=== PATIENT | male | born 1990 | race African-American/Black ===

== ENCOUNTER 2019-12-12 09:34 | Emergency (ER) | payer OTHER, SELFPAY ==
[2019-12-12 09:38] VITALS: BP 131/77; PULSE 91; RESP 18; TEMP 36.7; O2SAT 99
--- NOTE | 2019-12-12 09:48 | ED.GENADULT ---
HPI - General Adult General Chief complaint: Urogenital-Male Stated complaint: std check Time Seen by Provider: 12/12/19 09:36 Source: RN notes reviewed History of Present Illness HPI narrative: Patient presents emergency department from home for STD check. Patient states he had unprotected sex 2 days ago is concerned about potential STD. He denies having any symptoms. He denies having any urethral discharge penile pain penile lesions testicular pain abdominal pain nausea vomiting fevers or any other symptoms. Related Data Home Medications Medication Instructions Recorded Confirmed No Home Medications 06/25/19 06/25/19 Allergies Allergy/AdvReac Type Severity Reaction Status Date / Time ondansetron Allergy Intermediate HIVES Verified 12/12/19 09:48 Sulfa (Sulfonamide Allergy Unknown Unknown Verified 12/12/19 09:48 Antibiotics) Review of Systems Review of Systems: Narrative: Gen.: Denies fevers or chills ENT: Denies congestion sore throat Respiratory: Denies shortness of breath CV: Denies chest pain GI: Denies abdominal pain nausea, emesis see HPI Musculoskeletal: Denies back pain or muscle pain Neuro: Denies headache Skin: Denies rash Except as documented, all other systems reviewed and negative [facility] Past Medical History Medical History (Updated 12/12/19 @ 09:50 by Manolo Barrios DO) Patient denies significant medical history Social History Social History Smoking status: Never smoker Gender identity (if verbalized by the patient): Male Exam Narrative: Exam Narrative: APPEARANCE: No acute distress, nontoxic, resting in bed EYES: EOMI HEENT: Normocephalic, atraumatic, OMM RESPIRATORY: No respiratory distress Clear to auscultation bilaterally with no rhonchi wheezing or rales. CARDIOVASCULAR: Regular rate and rhythm without murmurs rubs or gallops. ABDOMINAL: Soft, nontender, nondistended, no rebound or guarding MUSCULOSKELETAl: Moves all extremities. No clubbing, cyanosis or edema. NEURO: Awake and alert. Following commands, speech normal, no focal deficits SKIN:: Warm, dry. No rashes lesions or abrasions PSYCHIATRIC: Normal affect/mood, Course Course Emergency Course: Discussed with patient testing versus treating. At this time the patient wishes only have treating. We discussed HIV testing I discussed patient is followed with his PCP or health department for HIV testing Discussed with patient results of workup and diagnosis. Discussed need for follow-up with primary care, proper use of medication, and reasons to return to the emergency department. Patient understands and agrees to current treatment plan Vital Signs Vital signs: Vital Signs Temperature 98.1 F 12/12/19 09:38 Pulse Rate 91 12/12/19 09:38 Respiratory Rate 18 12/12/19 09:38 Blood Pressure 131/77 12/12/19 09:38 Pulse Oximetry 99 12/12/19 09:38 Temperature 98.1 F 12/12/19 09:38 Pulse Rate 91 12/12/19 09:38 Respiratory Rate 18 12/12/19 09:38 Blood Pressure 131/77 12/12/19 09:38 Pulse Oximetry 99 12/12/19 09:38 Medical Decision Making Vital Signs Vital Signs: Vital Signs Temperature 98.1 F 12/12/19 09:38 Pulse Rate 91 12/12/19 09:38 Respiratory Rate 18 12/12/19 09:38 Blood Pressure 131/77 12/12/19 09:38 Pulse Oximetry 99 12/12/19 09:38 Temperature 98.1 F 12/12/19 09:38 Pulse Rate 91 12/12/19 09:38 Respiratory Rate 18 12/12/19 09:38 Blood Pressure 131/77 12/12/19 09:38 Pulse Oximetry 99 12/12/19 09:38 Discharge Plan Discharge Clinical Impression: Sexually transmitted disease exposure Patient Disposition: Home, Self-Care Condition: Stable Instructions: Antibiotic Form, Sexually Transmitted Diseases (ED) Additional Instructions: All sexual partners need be evaluated for possible sexually transmitted disease Prescriptions: No Action No Home Medications
[2019-12-12] MEDS: cefTRIAXone 250 MG VIAL IM (10:08)
[2019-12-12] MEDS: AZITHROMYCIN 250 MG TABLET 1000 MG PO (10:08)
== END 2019-12-12 10:14 | disposition home or self-care (01) ==
PROVIDERS: Emergency Provider Emergency Medicine
DX: Z20.2 Contact with and (suspected) exposure to infections with a predominantly sexual mode of transmission (principal)
CPT/HCPCS: 96372; 99283; A9270; J0696

== ENCOUNTER 2020-07-25 08:05 | Observation (INO) | payer OTHER, SELFPAY ==
[2020-07-25 08:09] VITALS: BP 138/96; PULSE 128; RESP 20; TEMP 36.3; O2SAT 99
--- NOTE | 2020-07-25 10:04 | ED.GENADULT ---
HPI - General Adult General Chief complaint: Wound/Laceration <Stephenie Alonzo PA-C - Last Filed: 08/18/20 12:31> Stated complaint: boil in L buttocks <Stephenie Alonzo PA-C - Last Filed: 08/18/20 12:31> Time Seen by Provider: 07/25/20 10:03 <Stephenie Alonzo PA-C - Last Filed: 08/18/20 12:31> Source: patient <Stephenie Alonzo PA-C - Last Filed: 08/18/20 12:31> Mode of arrival: ambulatory <GABE John Last Filed: 08/18/20 12:31> Limitations: no limitations <GABE John Last Filed: 08/18/20 12:31> History of Present Illness HPI narrative: 30-year-old male here for abscess on his left buttocks. States when he was getting into the bed here it opened up spontaneously and is now draining foul-smelling purulent material. The abscess started on Sunday, he denies any fever. Denies any spread to his genitals. He has had an abscess on his buttocks before. <Stephenie Alonzo PA-C - Last Filed: 08/18/20 12:31> Onset (ago): day(s) <Stephenie Alonzo PA-C - Last Filed: 08/18/20 12:31> Location: buttocks and left <Stephenie Alonzo PA-C - Last Filed: 08/18/20 12:31> Radiation: non-radiation <GABE John Last Filed: 08/18/20 12:31> Severity: severe <GABE John Last Filed: 08/18/20 12:31> Quality: sharp <GABE John Last Filed: 08/18/20 12:31> Pain Consistency: constant <GABE John Last Filed: 08/18/20 12:31> Associated symptoms: denies other symptoms <Stephenie Alonzo PA-C - Last Filed: 08/18/20 12:31> Treatments prior to arrival: NSAID (tylenol) <Stephenie Alonzo PA-C - Last Filed: 08/18/20 12:31> Related Data Allergies/adverse reactions: Allergies Allergy/AdvReac Type Severity Reaction Status Date / Time ondansetron Allergy Intermediate HIVES Verified 07/26/20 12:08 shrimp Allergy Intermediate Hives Verified 07/26/20 12:08 Sulfa (Sulfonamide Allergy Mild Hives Verified 07/26/20 12:08 Antibiotics) <Stephenie Alonzo PA-C - Last Filed: 08/18/20 12:31> Review of Systems Review of Systems: All systems reviewed & are unremarkable except as noted in HPI and below <Stephenie Alonzo PA-C - Last Filed: 08/18/20 12:31> [facility] Past Medical History Medical History: Medical History (Updated 07/25/20 @ 13:57 by Stephenie Alonzo PA-C) Abscess Patient denies significant medical history <Stephenie Alonzo PA-C - Last Filed: 08/18/20 12:31> Family History Family History: Family History (Updated 07/25/20 @ 15:24 by Ashley Ballard RN) Grandparent Diabetes mellitus Mother No problems noted. Sibling Asthma Sibling Asthma Sibling Asthma <Stephenie Alonzo PA-C - Last Filed: 08/18/20 12:31> Social History Social History: Social History Years smoked: 3 Smoking status: Current some day smoker Tobacco type: cigarettes Alcohol intake: current Substance use type: marijuana Other substance usage details: 2-3 joints per day Gender identity (if verbalized by the patient): Male Sexual Orientation (if Verbalized by the Patient): Straight or Heterosexual Spiritual care concerns: No <Stephenie Alonzo PA-C - Last Filed: 08/18/20 12:31> Exam Const: General: no acute distress and alert <Stephenie Alonzo PA-C - Last Filed: 08/18/20 12:31> Orientation/consciousness: patient oriented x3 <Stephenie Alonzo PA-C - Last Filed: 08/18/20 12:31> HENMT: Head: normal to inspection <Stephenie Alonzo PA-C - Last Filed: 08/18/20 12:31> Eyes: Pupils: Equal, round and reactive pupils present <Stephenie Alonzo PA-C - Last Filed: 08/18/20 12:31> Resp: Effort & Inspection: normal respiratory effort <GABE John Last Filed: 08/18/20 12:31> Auscultation: clear to auscultation bilaterally <Stephenie Alonzo PA-C - Last Filed: 08/18/20 12:31> Cardio: Rate: regular ra
[2020-07-25] MEDS: KETOROLAC (*BKC) 60 MG/2 ML VIAL IM (10:31)
[2020-07-25] MEDS: LIDOCAINE, EPINEPHRINE, TETRACAINE VISCOUS SOLN 3 ML TOPICAL (10:31)
[2020-07-25 10:56] LABS: Basophils Absolute Auto 0.1 K/mm3 (0.0-0.1); Basophils Percent Auto 0.3 % (0.2-1.2); Hematocrit 44.5 % (42.0-52.0); Immature Granulocyte Absolute 0.13 K/mm3 (0.00-0.031); Immature Granulocyte Percent A 0.5 % (0-0.5); Lymphocytes Absolute Auto 1.71 K/mm3 (0.9-3.2); Lymphocytes Percent Auto 6.2 % (18.3-44.2); Mean Corpuscular HGB Conc 31.5 g/dl (32-36); Mean Corpuscular Hemoglobin 24.1 pg (26-34); Mean Corpuscular Volume 76.7 fl (80-100); Mean Platelet Volume 8.2 fl (7.4-10.4); Monocytes Absolute Auto 1.8 K/mm3 (0.1-0.6); Monocytes Percent Auto 6.4 % (2.6-8.5); Neutrophils Absolute Auto 23.8 K/mm3 (1.3-6.7); Neutrophils Percent Auto 86.6 % (45.5-73.1); Platelet Count Result 325 k/mm3 (150-375); White Blood Count 27.5 K/mm3 (4.5-10.0)
[2020-07-25 11:08] LABS: Lactic Acid Reflex 1.4 mmol/L (0.7-2.1)
[2020-07-25 11:11] LABS: Alanine Aminotransferase 18 U/L (4-50); Albumin Level 4.3 g/dL (3.5-5.1); Alkaline Phosphatase 118 U/L (38-126); Anion Gap 5 mmol/L (8-16); Aspartate Amino Transferase 26 U/L (17-59); Bilirubin,Total 1.2 mg/dL (0.2-1.3); Blood Urea Nitrogen 8 mg/dL (9-20); CRP 7.8 mg/dL (<1.0); Calcium 9.3 mg/dL (8.4-10.2); Carbon Dioxide 27 mmol/L (22-30); Chloride 104 mmol/L (98-107); Estimated CRCL calculation 113 ml/min; Estimated Glomerular Filt Rate > 60; Glucose 106 mg/dL (75-110); Potassium 3.6 mmol/L (3.4-5.0); Sodium 136 mmol/L (137-145)
--- NOTE | 2020-07-25 12:08 | PM.IMHP ---
H&P: HPI History of Present Illness Date/Time: 07/25/20 12:08 Chief Complaint: abscess Narrative: Queta Aguirre is a 30 year old male presenting to ED c/o worsening abscess on L buttock, perineum over last few days. Pt reports area has steadily increased in size and is constantly painful. Pt reports it started spontaneously draining while in ED today. Pt reports pain is better since area started draining. Pt denies any f/c. Pt reports previous abscess on buttock but not is same spot. Review of Systems Constitutional: Constitutional: Denies anorexia, Denies chills, Denies difficulty sleeping, Denies fatigue, Denies fever(s), Denies lethargy, Denies malaise, Denies poor appetite, Denies weakness, Denies weight gain and Denies weight loss Eyes: Eyes: Reports no additional eye complaints ENT: Reports system reviewed and no additional complaints, except as documented Cardiovascular: Cardiovascular: Reports no additional cardiovascular complaints Respiratory: Respiratory: Reports no additional respiratory complaints Gastrointestinal: Gastrointestinal: Reports no additional gastrointestinal complaints Genitourinary: Genitourinary: Reports no additional male genitourinary complaints Musculoskeletal: Musculoskeletal: Reports no additional musculoskeletal complaints Integumentary/Breasts: Skin/Breast: Reports system reviewed and no additional complaints, except as docu Neurologic: Reports system reviewed and no additional complaints, except as documented Psychiatric: Psychiatric: Reports no additional psychiatric complaints Endocrine: Endocrine: Reports no additional endocrine complaints Hematologic/Lymphatic: Hematologic/Lymphatic: Reports no additional hematologic/lymphatic complaints Allergic/Immunologic: Allergic/Immunologic: Reports no additional allergic/immunologic complaints PMFSH Past Medical History Medical History Abscess Patient denies significant medical history Social History Social History Smoking status: Never smoker Gender identity (if verbalized by the patient): Male Comments no past surgical history, denies any FH of DM or skin cancers Meds Home Medications and Allergies Home Medications Medication Instructions Recorded Confirmed Type No Home Medications 06/25/19 07/25/20 History Allergies Allergy/AdvReac Type Severity Reaction Status Date / Time ondansetron Allergy Intermediate HIVES Verified 07/25/20 08:12 Sulfa (Sulfonamide Allergy Unknown Unknown Verified 07/25/20 08:12 Antibiotics) Vital Signs Vital Signs - 24 hr 07/25/20 08:09 Temperature 36.3 C L Pulse Rate 128 H Respiratory Rate 20 Blood Pressure 138/96 H Pulse Oximetry 99 Exam Const: General: cooperative, healthy appearing and acute distress mild Nutritional Appearance: average body habitus Orientation/consciousness: patient oriented x3 Limitations: no limitations HENMT: Head: normal to inspection, normocephalic and atraumatic Ears: hearing grossly normal bilaterally General nose exam: Normal external nose present Face and sinus: normal facial exam Mouth: Yes Normal oral and palatal mucosa present and Yes moist mucous membranes abnormal Eyes: General: appearance normal, both eyes and all related structures Pupils: Equal, round and reactive pupils present EOM: EOMs intact bilaterally Neck: Neck: normal visual inspection, full ROM and no lymphadenopathy Chest: Chest palpation & inspection: normal inspection of the chest Resp: Effort & Inspection: normal respiratory effort Auscultation: clear to auscultation bilaterally Cardio: Rate: regular rate Rhythm: regular rhythm GI: Inspection: normal to inspection GI Palp: No abdominal tenderness, Yes Soft to palpation, No Firmness to palpation present (GI) and No Tenderness to palpation present (GI) Skin: Other: L lower buttock, per
[2020-07-25] MEDS: HYDROmorphone HCL INJ (*CRX) 1 MG/ML SYR IV PUSH ×4 (12:14→23:48)
[2020-07-25 12:54] VITALS: BP 140/95; PULSE 75; RESP 18; O2SAT 100
[2020-07-25] MEDS: METOCLOPRAMIDE HCL INJ 10 MG/2 ML VIAL IV PUSH (12:57)
[2020-07-25 14:38] VITALS: BP 135/94; PULSE 78; RESP 18; O2SAT 100
--- NOTE | 2020-07-25 14:55 | ADMGEN ---
This patient, Queta Aguirre, was admitted to Medical Room 254-01. Patient/family oriented to hospital policies and general routines including ID bracelet, bed and alarms, visiting hours, pain management, procedures, bathroom and other care routines, personal items, smoking policy, room service/diet, and visiting hours. Information on how to activate the Rapid Response Team has been discussed. Patient/Family are encouraged to report perceived risks to care and to ask questions if they do not understand what they are told or what they should do.
[2020-07-25] MEDS: SODIUM CHLORIDE 0.9% IV 1,000 ML 125 ML IV CONT ×2 (15:05→22:56)
[2020-07-25 15:10] VITALS: BP 142/85; PULSE 71; RESP 16; TEMP 36; O2SAT 98
[2020-07-25 18:00] VITALS: BP 137/82; PULSE 64; RESP 16; TEMP 36.7; O2SAT 100
[2020-07-25 22:00] VITALS: BP 138/88; PULSE 79; RESP 16; TEMP 36.9; O2SAT 100
[2020-07-25 22:07] VITALS: BMI 30.9
[2020-07-26] VITALS (7 sets, daily range): BP systolic 116–133; BP diastolic 58–81; PULSE 65–102; RESP 16–20; TEMP 36.7–37.2; O2SAT 98–100
[2020-07-26] MEDS: HYDROmorphone HCL INJ (*CRX) 1 MG/ML SYR IV PUSH ×2 (04:55→09:31)
[2020-07-26 05:53] LABS: Estimated CRCL calculation 139 ml/min; Estimated Glomerular Filt Rate > 60
[2020-07-26] MEDS: SODIUM CHLORIDE 0.9% IV 1,000 ML 125 ML IV CONT (09:27)
[2020-07-26 10:03] LABS: Hematocrit 40.3 % (42.0-52.0); Hemoglobin 12.6 g/dL (14.0-18.0); Mean Corpuscular HGB Conc 31.3 g/dl (32-36); Mean Corpuscular Hemoglobin 24.2 pg (26-34); Mean Corpuscular Volume 77.4 fl (80-100); Mean Platelet Volume 9.2 fl (7.4-10.4); Platelet Count Result 318 k/mm3 (150-375); Red Blood Count 5.21 M/mm3 (4.6-6.20); White Blood Count 18.6 K/mm3 (4.5-10.0)
--- NOTE | 2020-07-26 10:08 | PM.PNGS ---
Progress Note: A&P Assessment and Plan (1) Abscess: Code(s): L02.91 - Cutaneous abscess, unspecified Status: Inactive Assessment and Plan: Left perianal abscess still with purulent drainage and fluctuance. Still very tender on exam. WBC pending this morning. Discussed treatment options with the patient. This abscess looks today like it has not adequately drained and may require further I&D in the OR. Patient very tender on exam. Discussed with Dr. Harris. Will make patient NPO for now. We will try to add him onto the surgery schedule today. Continue IV abx, IV fluids, and analgesics. Description of the procedure, risks, benefits, indications, and expected outcomes were discussed with the patient in detail. All questions were answered. He agrees to proceed. Subjective Subjective Date/Time Seen: 07/26/20 10:08 Patient reports: no new complaints and pain is less Interval history: Patient feels his buttock pain has improved but no more drainage on the dressing today. Afebrile. WBC pending. No other complaints. Review of Systems Review of Systems: All systems reviewed & are unremarkable except as noted in HPI and below Exam Skin: Other: Left buttock/perianal abscess with induration and an area of fluctuance near the center. Scant purulent drainage still coming from small opening near the center. TTP. Objective Data Vital Signs Vital Signs: Vital Signs - 24 hr 07/25/20 12:54 07/25/20 14:38 07/25/20 15:10 Temperature 96.8 F L Pulse Rate 75 78 71 Respiratory Rate 18 18 16 Blood Pressure 140/95 H 135/94 H 142/85 H Pulse Oximetry 100 100 98 07/25/20 18:00 07/25/20 22:00 07/26/20 06:00 Temperature 98.1 F 98.5 F 98.1 F Pulse Rate 64 79 72 Respiratory Rate 16 16 18 Blood Pressure 137/82 138/88 116/59 L Pulse Oximetry 100 100 100 Intake/Output Intake/Output: Intake & Output 07/23/20 07/24/20 07/25/20 07/26/20 23:59 23:59 23:59 23:59 Intake Total 2220 2190 Output Total 0 850 Balance 2220 1340 Meds/Results Medications: Active Medications Generic Name Dose Route Start Last Admin Trade Name Freq PRN Reason Stop Dose Admin Hydromorphone HCl 1 mg 07/25/20 12:40 07/26/20 09:31 Hydromorphone Hcl Inj (*Crx) 1 Mg/Ml Syr IV PUSH 1 mg Q4H PRN Administration Pain Rated 7-10 Sodium Chloride 1,000 mls @ 125 mls/hr 07/25/20 12:40 07/26/20 09:27 Normal Saline Iv IV CONT 125 mls/hr .Q8H DOMINGO Administration Vancomycin HCl 1,500 mg in 500 mls @ 333.333 mls/hr 07/26/20 00:00 07/26/20 02:20 Vancomycin 1,500 Mg/D5w 500 Ml IVPB Infused Q12H DOMINGO Infusion Acetaminophen 1,000 mg in 100 mls @ 400 mls/hr 07/26/20 10:03 Ofirmev 1,000 Mg Ivpb IVPB 07/27/20 10:04 Q6H PRN Pain Rated 4-6 Labs Labs: Laboratory Results - last 24 hr 07/25/20 07/25/20 07/25/20 10:50 10:50 10:51 WBC 27.5 H RBC 5.80 Hgb 14.0 Hct 44.5 MCV 76.7 L MCH 24.1 L MCHC 31.5 L RDW 14.0 Plt Count 325 MPV 8.2 Immature Gran % (Auto) 0.5 Neut % (Auto) 86.6 H Lymph % (Auto) 6.2 L [place] % (Auto) 6.4 Eos % (Auto) 0.0 Baso % (Auto) 0.3 Lymph # (Auto) 1.71 [place] # (Auto) 1.8 H Eos # (Auto) 0.0 Baso # (Auto) 0.1 Abs Immat Gran (auto) 0.13 H Absolute Neuts (auto) 23.8 H Absolute Nucleated RBC 0.0 Nucleated RBC % 0.0 Sodium 136 L Potassium 3.6 Chloride 104 Carbon Dioxide 27 Anion Gap 5 L BUN 8 L Creatinine 1.00 Estim Creat Clear Calc 113 Estimated GFR > 60 Glucose 106 Lactic Acid 1.4 Calcium 9.3 Total Bilirubin 1.2 AST 26 ALT 18 Alkaline Phosphatase 118 C-Reactive Protein 7.8 H Total Protein 9.0 H Albumin 4.3 07/26/20 05:06 WBC RBC Hgb Hct MCV MCH MCHC RDW Plt Count MPV Immature Gran % (Auto) Neut % (Auto) Lymph % (Auto) [place] % (Auto) Eos % (Auto) Baso % (Auto) Lymph # (Auto) [place] # (Auto) Eos # (Auto)
[2020-07-26] MEDS: LACTATED RINGERS 1,000 ML 30 ML IV CONT (12:00)
--- NOTE | 2020-07-26 12:02 | WPDANESEPPF ---
Anes - Initial Pre Proc Eval Procedure: Operation Date: 07/26/20 12:30 Proposed Procedures p COMPLEX INCISION AND DRAINAGE LEFT PERINEAL ABSCESS - Katerina Harris MD Date/Time: 07/26/20 12:02 Surgeon: Katerina Harris MD Pre Op Diagnosis: Abscess Patient Data Age: 30 Gender: M Height: 1.78 m Weight: 97.8 kg Last Vital Signs Temp 36.7 C 07/26/20 06:00 Pulse 72 07/26/20 06:00 Resp 18 07/26/20 06:00 BP 116/59 L 07/26/20 06:00 Pulse Ox 100 07/26/20 06:00 Allergies Allergy/AdvReac Type Severity Reaction Status Date / Time ondansetron Allergy Intermediate HIVES Verified 07/25/20 15:15 shrimp Allergy Intermediate Hives Verified 07/25/20 15:15 Sulfa (Sulfonamide Allergy Mild Hives Verified 07/25/20 15:15 Antibiotics) Home Medications Medication Instructions Recorded Confirmed Type No Home Medications 06/25/19 07/25/20 History Laboratory Tests 07/26/20 07/26/20 05:06 05:06 WBC 18.6 K/mm3 H K/mm3 (4.5-10.0) RBC 5.21 M/mm3 M/mm3 (4.6-6.20) Hgb 12.6 g/dL L g/dL (14.0-18.0) Hct 40.3 % L % (42.0-52.0) MCV 77.4 fl L fl (80-100) MCH 24.2 pg L pg (26-34) MCHC 31.3 g/dl L g/dl (32-36) RDW 14.0 % % (11.5-14.5) Plt Count 318 k/mm3 k/mm3 (150-375) MPV 9.2 fl fl (7.4-10.4) Creatinine 0.80 mg/dL mg/dL (0.7-1.3) Estim Creat Clear Calc 139 ml/min ml/min Estimated GFR > 60 (59 - ) Patient hx anesthesia problems: none Family hx anesthesia problems: none PMFSH Past Medical History Medical History (Updated 07/25/20 @ 13:57 by Stephenie Alonzo PA-C) Abscess Patient denies significant medical history Family History Family History (Updated 07/25/20 @ 15:24 by Ashley Ballard RN) Grandparent Diabetes mellitus Mother No problems noted. Sibling Asthma Sibling Asthma Sibling Asthma Social History Social History Years smoked: 3 Smoking status: Current some day smoker Tobacco type: cigarettes Alcohol intake: current Substance use type: marijuana Other substance usage details: 2-3 joints per day Gender identity (if verbalized by the patient): Male Sexual Orientation (if Verbalized by the Patient): Straight or Heterosexual Spiritual care concerns: No Anes - Eval Final PreProcedure Day of Procedure 07/26/20 12:02 Patient weight: obese Heart: regular rate and rhythm Lungs: clear to auscultation and normal air movement Airway: Mallampati scale class II Neurological: alert and oriented Last oral intake: >/= 8 hours ASA classification: III Emergent: no Anesthetic plan: proceed Anesthesia type and monitoring: general LMA and ETT Informed Consent: The patient's anesthetic plan and its attendant risks and benefits were discussed with the patient/family/POA. Questions were solicited and answers provided to the satisfaction of the patient/family/POA.
--- NOTE | 2020-07-26 12:25 | WPDHPUPDATE1 ---
History and Physical Update Update Date/Time: 07/26/20 12:25 History and Physical has been reviewed, including an updated exam of the patient. There are NO changes in the patient's condition. Risks, benefits, and alternatives have been discussed and questions answered. Patient agrees to proceed with procedure.
[2020-07-26] MEDS: BUPIVACAINE/EPINEPHRINE 0.25% 50 ML VIAL 30 ML INFILTRATE (12:55)
--- NOTE | 2020-07-26 13:44 | PM.PROC ---
Procedure Note - Detailed Date of procedure: 07/26/20 Pre-op diagnosis: Abscess Left perineal abscess measuring 12 x 6 cm Post-op diagnosis: same Procedure performed: complex incision and drainage L perineal abscess Description of procedure: The patient was taken to the operating room and placed in the modified lithotomy position. After adequate induction of general anesthesia, the patient was prepped and draped in the normal sterile fashion. A time-out was then done to verify the patient's identity, as well as the procedure being performed. I began by examining the area of the abscess. It was noted to measure 12 x 6 cm and located within the left inner medial buttock extending down into the left perineum. There were some multiple punctate openings that were draining purulent material. I went ahead and localized the area. I then made an incision over the most fluctuant area of this abscess. A moderate amount of purulent drainage was noted. I was then able to bluntly dissect around the entire cavity of the abscess. This was noted to involve the skin and subcutaneous tissue but not the underlying muscle or bone. Once the area was completely open and draining, I packed the area with 1 in iodoform. Sterile dressing was then placed. The patient tolerated the procedure well and was extubated in the operating room postoperatively. He will be transferred recovery room in stable condition. Anesthesia: GETA Surgeon: Katerina Harris MD Estimated blood loss (mL): 5 Drains: No Packing: Yes Pathology: none sent Complications: No immediate complications Condition: stable Disposition: PACU Findings: 12 x 6 cm left perineal abscess
--- NOTE | 2020-07-29 11:09 | P.DS_ITS ---
DS: Admitting Diagnosis Admitting Diagnosis Admitting Diagnosis: perirectal abscess DS: Discharge Diagnosis Discharge Diagnosis (1) Abscess and cellulitis of gluteal region: Code(s): L02.31 - Cutaneous abscess of buttock; L03.317 - Cellulitis of buttock Status: Acute Assessment and Plan: s/p I and D, instructions for local wound care, take abx as prescribed DS: Summary Hospital Course Reason for hospitalization: L perirectal abscess Hospital Course: Pt admitted thru ED c L sided perirectal abscess. Pt noted spontaneous drainage in ED c some relief. Pt admitted and started on IV abx. On HD 1, pt c cont pain and severe induration. Decision to proceed to OR for complex incision and drainage, please see full op report for details. Pt did well postop and was dc'd home c po abx and analgesia. He will f/u 2 wks. Status at Discharge Functional status at discharge: independent ambulation Overall status at discharge: patient is progressing back to baseline Time Spent with Patient Time attestation: Total time spent providing and/or coordinating discharge services: Time spent: Less than 30 minutes Exam Const: General: cooperative, comfortable and no acute distress Resp: Auscultation: clear to auscultation bilaterally Cardio: Rate: regular rate Rhythm: regular rhythm Skin: Other: L perineal abscess - well drained, packed Discharge Plan Discharge Attending physician on discharge: Katerina Harris Consulting providers: Robert Goetz ; Stephenie Alonzo ; Shavon Dooley Discharging Clinician: Katerina Harris Anticipated Discharge Date/Time: 07/26/20 16:00 Patient Disposition: Home, Self-Care Activity: october shower Diet: as tolerated and regular Patient Instructions: Antibiotic Form Stand Alone Forms: General Discharge Information, Work/School Release IP Follow-up/Referrals: Katerina Harris MD [Physician] - 2 Weeks Discharge Medications: New amoxicillin-pot clavulanate [Augmentin] 875-125 mg tablet 1 tablet PO Q12H Qty: 14 RF: 0 hydrocodone-acetaminophen [[place]] 5-325 mg tablet 1 tablet PO Q6H PRN (Reason: pain) Qty: 20 RF: 0 docusate sodium [Colace] 100 mg capsule 100 mg PO BID Qty: 20 RF: 0 Date of admission: 07/25/20 12:40 Primary Care Provider: PHYSICIAN,BIOMEDICAL FIELD SERVICE ENGINEER Admitting Provider: Katerina Harris Attending physician on admission: Katerina Harris Condition: Stable
== END 2020-07-26 16:57 | disposition home or self-care (01) ==
LOC: ANHED 10:04 → ANH2MED 13:09
PROVIDERS: Nurse Practitioner Family; Physician Assistant; Admitting Provider Surgery; Emergency Provider General Practice; Visit Provider Surgery
PROC: (CPT 46040; principal; 2020-07-26 12:30)
DX: L02.215 Cutaneous abscess of perineum (principal); L03.317 Cellulitis of buttock; F17.210 Nicotine dependence, cigarettes, uncomplicated; F12.90 Cannabis use, unspecified, uncomplicated; E66.9 Obesity, unspecified; Z68.30 Body mass index [BMI] 30.0-30.9, adult
CPT/HCPCS: 10061; 36415; 80053; 82565; 83605; 85025; 85027; 86140; 96361; 96365; 96366; 96372; 96375; 96376; 99285; A9270; G0378; G0379; J0330; J1100; J1170; J1885; J2250; J2405; J2704; J2765; J3010; J3370; J7030; J7120

== ENCOUNTER 2021-01-24 20:46 | Emergency (ER) | payer OTHER, SELFPAY ==
[2021-01-24 21:02] VITALS: BP 135/80; PULSE 106; RESP 20; TEMP 37.5; O2SAT 99
--- NOTE | 2021-01-24 23:46 | PC.NURSE ---
Pt states he will come back tomorrow and does not wish to be seen.
== END 2021-01-24 23:50 | disposition left against medical advice (07) ==
LOC: ANHED 23:51
DX: L02.828 Furuncle of other sites (principal)
CPT/HCPCS: 99199

== ENCOUNTER 2021-01-25 15:42 | Emergency (ER) | payer OTHER, SELFPAY ==
--- NOTE | ~2021-01-25 | CT_ITS ---
EXAMINATION: CT abdomen pelvis w con DATE: 01/25/2021 19:47 INDICATION: Abdominal wall abscess. Scrotal abscess. TECHNIQUE: Computed tomography (CT) of the abdomen and pelvis was performed with 100 mL Omnipaque 350 intravenous contrast. Automated exposure control and iterative reconstruction technique were employe d. The dose-length product was 757.12 mGy-cm. COMPARISON: CT abdomen and pelvis 06/11/2016 FINDINGS: The visualized portions of the lung bases demonstrate mild atelectasis. No pleural effusion . The heart size is normal. No pericardial effusion. The liver, gallbladder, spleen, pancreas, adrena l glands, and kidneys are normal. There are no dilated loops of bowel. The appendix is normal. There is skin thickening and subcutaneous fat stranding in left anterior anterior abdominal wall, consisten t with inflammation. No significant drainable abscess. There is mild bilateral inguinal lymphadenopat hy, likely reactive. There is skin thickening superior to the penis, consistent with inflammation. Th ere is skin thickening of the scrotum. There is mild thoracolumbar spondylosis. IMPRESSION: 1. Inflammation of the anterior body wall and scrotum. No significant drainable abscess. 2. Mild bilateral inguinal lymphadenopathy, likely reactive. Reviewed, dictated and finalized at location [facility].
[2021-01-25 16:07] VITALS: BP 122/70; PULSE 91; RESP 18; TEMP 37.7; O2SAT 99
[2021-01-25 17:37] VITALS: BP 133/90; PULSE 83; RESP 16; O2SAT 98
--- NOTE | 2021-01-25 18:32 | ED.SKABFB ---
HPI - Skin/Abscess/Foreign Bdy General Chief complaint: Skin/Abscess/Foreign Body Stated complaint: Boils Time Seen by Provider: 01/25/21 17:40 Source: patient Mode of arrival: ambulatory Limitations: no limitations History of Present Illness HPI narrative: This is a 30 year old male that presents to the ER for multiple abscesses present over the last week. Reports an area over the left side of the lower abdomen. Also an area over the right scrotum. He has had drainage from the areas. Reports he has had multiple abscesses in the right armpit and the skin has not healed well in this area. He has never seen a enchilada maker. Also reports he would like to be tested for STDs. Denies fever. Related Data Allergies Allergy/AdvReac Type Severity Reaction Status Date / Time ondansetron Allergy Intermediate HIVES Verified 07/26/20 12:08 shrimp Allergy Intermediate Hives Verified 07/26/20 12:08 Sulfa (Sulfonamide Allergy Mild Hives Verified 07/26/20 12:08 Antibiotics) Review of Systems Review of Systems: CONSTITUTIONAL: Denies fever GASTROINTESTINAL: Denies abdominal pain, nausea, vomiting GENITOURINARY: Reports dysuria All systems reviewed & are unremarkable except as noted in HPI and below PMFSH Past Medical History Medical History (Updated 01/25/21 @ 20:53 by Niki Weaver PA-C) Abscess Patient denies significant medical history Family History Family History (Updated 07/25/20 @ 15:24 by Ashley Ballard RN) Grandparent Diabetes mellitus Mother No problems noted. Sibling Asthma Sibling Asthma Sibling Asthma Social History Social History Years smoked: 3 Smoking status: Current some day smoker Tobacco type: cigarettes Alcohol intake: current Substance use type: marijuana Other substance usage details: 2-3 joints per day Gender identity (if verbalized by the patient): Male Spiritual care concerns: No Exam Narrative: GENERAL: Well-appearing, well-nourished, and in no acute distress. HEAD: Normocephalic, atraumatic. EYES: EOMI. CHEST: Clear to auscultation. No respiratory distress. No wheezes rales or rhonchi HEART: Regular rate and rhythm. No murmur heard. Normal peripheral pulses. ABDOMEN: Soft, nontender, nondistended, normal active bowel sounds. Left lower abdomen with 5cm x 4cm area of erythema and edema EXTREMITIES: Normal range of motion. No edema. Sinus tracts present in the right axilla, draining purulent fluid on expression SKIN: Warm, dry, no rash. NEURO: No focal deficits. Alert and oriented x3. PSYCH: Normal mood and affect MALE GENITAL: Right hemiscrotum with 2cm area of edema, draining purulent fluid when expressed. The rest of the scrotum appears normal. No testicular tenderness. No abnormal urethral discharge Course Vital Signs Vital signs: Vital Signs Temperature 99.9 F H 01/25/21 16:07 Pulse Rate 91 01/25/21 16:07 Respiratory Rate 18 01/25/21 16:07 Blood Pressure 122/70 01/25/21 16:07 Pulse Oximetry 99 01/25/21 16:07 Temperature 99.9 F H 01/25/21 16:07 Pulse Rate 83 01/25/21 17:37 Respiratory Rate 16 01/25/21 17:37 Blood Pressure 133/90 01/25/21 17:37 Pulse Oximetry 98 01/25/21 17:37 MDM - Skin/Abscess/Foreign Bdy MDM Narrative Medical decision making narrative: Patient presents to the emergency department for multiple areas of edema and erythema. He is afebrile and nontoxic-appearing. CBC does show mild leukocytosis to 13.3. ESR and CRP are mildly elevated. UA without evidence of infection. He has an area of erythema and edema to the left lower abdominal wall. Also a small area of edema to the right scrotum that is spontaneously draining purulent fluid. CT scan of the abdomen and pelvis shows areas of inflammation, no significant drainable abscesses. Patient also has sinus tracts present in the right axilla that spontaneously draining purulent fluid. Patient al
[2021-01-25 18:46] LABS: Basophils Absolute Auto 0.1 K/mm3 (0.0-0.1); Basophils Percent Auto 0.5 % (0.2-1.2); Eosinophils Absolute Auto 0.3 K/mm3 (0-0.3); Eosinophils Percent Auto 1.9 % (0-4.4); Hematocrit 41.6 % (42.0-52.0); Hemoglobin 12.7 g/dL (14.0-18.0); Immature Granulocyte Absolute 0.04 K/mm3 (0.00-0.031); Immature Granulocyte Percent A 0.3 % (0-0.5); Lymphocytes Percent Auto 23.4 % (18.3-44.2); Mean Corpuscular HGB Conc 30.5 g/dl (32-36); Mean Corpuscular Hemoglobin 23.6 pg (26-34); Mean Corpuscular Volume 77.2 fl (80-100); Mean Platelet Volume 8.2 fl (7.4-10.4); Monocytes Absolute Auto 0.9 K/mm3 (0.1-0.6); Monocytes Percent Auto 6.9 % (2.6-8.5); Neutrophils Absolute Auto 8.9 K/mm3 (1.3-6.7); Platelet Count Result 344 k/mm3 (150-375); Red Blood Count 5.39 M/mm3 (4.6-6.20); Red Cell Distribution Width 16.2 % (11.5-14.5); White Blood Count 13.3 K/mm3 (4.5-10.0)
[2021-01-25 18:57] LABS: Alanine Aminotransferase 15 U/L (4-50); Albumin Level 3.9 g/dL (3.5-5.1); Alkaline Phosphatase 106 U/L (38-126); Anion Gap 10 mmol/L (8-16); Aspartate Amino Transferase 22 U/L (17-59); Bilirubin,Total 0.5 mg/dL (0.2-1.3); Blood Urea Nitrogen 5 mg/dL (9-20); CRP 1.6 mg/dL (<1.0); Calcium 9.5 mg/dL (8.4-10.2); Carbon Dioxide 30 mmol/L (22-30); Chloride 99 mmol/L (98-107); Estimated CRCL calculation 126 ml/min; Estimated Glomerular Filt Rate > 60; Glucose 64 mg/dL (65-110); Potassium 3.8 mmol/L (3.4-5.0); Sodium 139 mmol/L (137-145)
[2021-01-25 19:09] LABS: Add Urine Microscopic? YES; Appearance Urine Clear (Clear); Bilirubin Urine Negative (Negative); Blood Urine Negative (Negative); Color Urine Yellow (Yellow); Glucose Urine UA Negative (Negative); Ketones Urine Negative (Negative); Leukocyte Esterase Ur Negative LEU/UL (Negative); Mucus Urine Rare /lpf; Nitrate Urine Negative (Negative); Protein Urine Negative (Negative); RBC Urine 0-2 /hpf (0-2); Specific Grav Ur 1.023 (1.001-1.035); Squamous Epithelial Cell Urine Rare /hpf (Few); WBC Urine 0-3 /hpf
[2021-01-25 19:25] LABS: Erythrocyte Sedimentation Rate 25 mm/hr (0-20)
[2021-01-25] MEDS: LIDOCAINE HCL 1% LOCAL INJ 20 ML VIAL 2.1 ML XX (20:54)
[2021-01-25] MEDS: cefTRIAXone 1 GM VIAL 0.5 GM IM (20:54)
[2021-01-25 21:06] VITALS: BP 132/78; PULSE 72; RESP 18; O2SAT 99
== END 2021-01-25 21:07 | disposition home or self-care (01) ==
PROVIDERS: Physician Assistant; Emergency Provider Emergency Medicine
DX: L03.311 Cellulitis of abdominal wall (principal); N49.2 Inflammatory disorders of scrotum; F17.210 Nicotine dependence, cigarettes, uncomplicated
CPT/HCPCS: 36415; 74177; 80053; 81001; 85025; 85652; 86140; 87070; 87205; 87491; 87591; 87661; 96372; 99284; J0696; Q9967

== ENCOUNTER 2022-03-16 16:38 | Emergency (ER) | payer OTHER, SELFPAY ==
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
[2022-03-16 17:17] VITALS: BP 139/93; PULSE 64; RESP 14; TEMP 37.4; O2SAT 100
--- NOTE | 2022-03-16 17:44 | ECG_ITS ---
Measurements Intervals New Point Rate: 51 P: 61 MS: 144 QRS: 32 QRSD: 94 T: 23 QT: 408 QTc: 376 Interpretive Statements SINUS BRADYCARDIA BORDERLINE T WAVE ABNORMALITY- ANTERIOR LEADS BORDERLINE ECG NO PREVIOUS ECG AVAILABLE FOR COMPARISON Electronically Signed On 03-16-2022 21:22:04 CDT by Roney Houston D.O.
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
== END 2022-03-16 18:51 | disposition home or self-care (01) ==
LOC: ANHED 18:35
PROVIDERS: Emergency Provider Nurse Practitioner Family
DX: S20.214A Contusion of middle front wall of thorax, initial encounter (principal); S81.011A Laceration without foreign body, right knee, initial encounter; F17.210 Nicotine dependence, cigarettes, uncomplicated; R00.1 Bradycardia, unspecified; R94.31 Abnormal electrocardiogram [ECG] [EKG]; V47.5XXA Car driver injured in collision with fixed or stationary object in traffic accident, initial encounter
CPT/HCPCS: 71250; 93005; 99284